=== PATIENT | female | born 1960 | race Caucasian/White ===

== ENCOUNTER → 2019-05-23 | Outpatient (CLI) | payer BC ==
--- NOTE | 2019-05-23 08:38 | CT ---
EXAMINATION TYPE: CT sinus wo con DATE OF EXAM: 05/23/2019 COMPARISON: None HISTORY: Chronic sinusitis, blocked tear ducts. CT DLP: [address] of the paranasal sinuses was performed in the axial and coronal planes. Bone and soft tissue settings are submitted. The paranasal sinuses demonstrate normal aeration and development. Scattered ethmoidal mucosal thickening mild in degree. The osteal meatal units are patent bilaterally. The nasal septum is midline. No bony destructive changes are seen within the field of view. IMPRESSION: Mild chronic ethmoid sinusitis.
== END | disposition home or self-care (01) ==
LOC: RADCTMAIN 07:55
PROVIDERS: ATTEND Otolaryngology
DX: J32.2 Chronic ethmoidal sinusitis (principal); J00 Acute nasopharyngitis [common cold]; H04.551 Acquired stenosis of right nasolacrimal duct
CPT/HCPCS: 70486